=== PATIENT | female | born 1980 | race Caucasian/White ===

== ENCOUNTER → 2020-06-02 16:19 | Outpatient (BNVA) | payer OTHER, SELFPAY | PROVIDERS: Family Provider Family Medicine; PCP Family Medicine; Visit Provider Family Medicine | DX: Z11.59 Encounter for screening for other viral diseases (principal) | CPT/HCPCS: 87635 ==

== ENCOUNTER → 2021-04-20 11:00 | Outpatient (BNVA) | payer OTHER, SELFPAY | PROVIDERS: Family Provider Family Medicine; PCP Family Medicine; Visit Provider Nurse Practitioner Family | DX: Z20.822 Contact with and (suspected) exposure to COVID-19 (principal); J06.9 Acute upper respiratory infection, unspecified | CPT/HCPCS: 87635 ==

== ENCOUNTER → 2021-07-20 15:07 | Outpatient (BNVA) | payer OTHER, SELFPAY | PROVIDERS: Family Provider Family Medicine; PCP Family Medicine; Visit Provider Nurse Practitioner Family | DX: Z20.822 Contact with and (suspected) exposure to COVID-19 (principal); J06.9 Acute upper respiratory infection, unspecified | CPT/HCPCS: 87635 ==

== ENCOUNTER 2021-08-22 11:30 | Outpatient (CLI) | payer OTHER, SELFPAY ==
--- NOTE | 2021-08-22 11:37 | XR_ITS ---
WS: [id number] LEFT KNEE: 2 VIEW(S) TECHNIQUE: AP and lateral. HISTORY: L knee pain COMPARISON: None available. No fracture or dislocation. No joint space narrowing or osteophytes. No joint effusion. No soft tissue abnormality. XR/XR knee LT 1-2V [id number] IMPRESSION: Normal LEFT knee.
== END 2021-08-22 11:31 | disposition home or self-care (01) ==
PROVIDERS: PCP Family Medicine; Visit Provider Family Medicine
DX: M25.562 Pain in left knee (principal)
CPT/HCPCS: 73560; 80053; 80061; 84443; 85025

== ENCOUNTER → 2021-08-23 08:09 | Outpatient (BNVA) | payer OTHER, SELFPAY | PROVIDERS: PCP Family Medicine; Visit Provider Family Medicine | DX: R79.89 Other specified abnormal findings of blood chemistry (principal); M25.562 Pain in left knee | CPT/HCPCS: 84439; 84443 ==

== ENCOUNTER → 2021-09-05 12:56 | Outpatient (BNVA) | payer OTHER, SELFPAY | PROVIDERS: PCP Family Medicine; Visit Provider Nurse Practitioner Family | DX: Z20.822 Contact with and (suspected) exposure to COVID-19 (principal) | CPT/HCPCS: 87635 ==

== ENCOUNTER 2022-08-11 13:17 | Outpatient (CLI) | payer OTHER, SELFPAY ==
--- NOTE | 2022-08-11 14:35 | XR_ITS ---
WS: [id number] Right foot, 3 views, 08/11/2022 Clinical Data: right foot pain Comparison: None. Findings: No fractures or dislocations are seen. No bone destruction or erosion is noted. The joint spaces and soft tissues are normal. Is a plantar spur and an Achilles spur. XR/XR foot RT min 3V* [id number] Impression: Negative right foot.
== END 2022-08-11 13:18 | disposition home or self-care (01) ==
PROVIDERS: PCP Family Medicine; Visit Provider Emergency Medicine
DX: M79.671 Pain in right foot (principal)
CPT/HCPCS: 73630

== ENCOUNTER → 2022-08-28 10:23 | Outpatient (BNVA) | payer OTHER, SELFPAY | PROVIDERS: PCP Family Medicine; Referring Provider Family Medicine; Visit Provider Podiatrist Foot & Ankle Surgery | DX: S86.011A Strain of right Achilles tendon, initial encounter (principal); M65.28 Calcific tendinitis, other site; M67.873 Other specified disorders of tendon, right ankle and foot; M92.61 Juvenile osteochondrosis of tarsus, right ankle; X58.XXXA Exposure to other specified factors, initial encounter | CPT/HCPCS: 73630 ==

== ENCOUNTER 2022-09-18 06:00 | Outpatient (RCR) | payer SELFPAY | END 2022-10-10 23:59 | disposition home or self-care (01) | LOC: MPT 06:00 | PROVIDERS: PCP Family Medicine; Visit Provider Podiatrist Foot & Ankle Surgery | DX: M76.61 Achilles tendinitis, right leg (principal); M79.671 Pain in right foot | CPT/HCPCS: 97033; 97110; 97112; 97140; 97161; G0283 ==

== ENCOUNTER 2022-10-11 06:00 | Outpatient (RCR) | payer OTHER, SELFPAY | END 2022-11-10 23:59 | disposition home or self-care (01) | LOC: MPT 06:00 | PROVIDERS: PCP Family Medicine; Visit Provider Podiatrist Foot & Ankle Surgery | DX: M76.61 Achilles tendinitis, right leg (principal) | CPT/HCPCS: 97110; 97140; G0283 ==

== ENCOUNTER → 2023-06-07 09:34 | Outpatient (BNVA) | payer OTHER, SELFPAY | PROVIDERS: PCP Family Medicine; Visit Provider Family Medicine | DX: Z34.90 Encounter for supervision of normal pregnancy, unspecified, unspecified trimester (principal); Z3A.00 Weeks of gestation of pregnancy not specified; R30.0 Dysuria | CPT/HCPCS: 80307; 81000; 81025; 84439; 84443; 84481; 84702; 85025; 86592; 86762; 86803; 86850; 86900; 87086; 87340; 87491; 87591; 87624; 87806 ==

== ENCOUNTER 2023-06-19 06:07 | Outpatient (CLI) | payer OTHER, SELFPAY ==
--- NOTE | 2023-06-19 06:30 | US_ITS ---
WS: [id number] LIMITED OBSTETRICAL ULTRASOUND HISTORY: Dating/Anatomy US - Unclear LMP - next 1-2 weeks if possible COMPARISON: None available. Presentation: Cephalic. Cervix: Closed and normal length. Placenta: Posterior, no previa or abruption. Grade: 0 HEART: FHR of 150 BPM. measurements: BPD = 3.4 cm = 16w3d; HC = 12.9 cm = 16w4d; AC = 9.8 cm = 15w6d; FL = 2.1 cm = 16w2d; Normal amniotic fluid. EFW: 146 g; AGA by ultrasound: 16w2d NILAY by ultrasound: 12/02/2023 IMPRESSION: 1. Single intrauterine gestation of 16 weeks 2 days with an EDC of 12/02/2023. 2. Normal cardiac activity.
== END 2023-06-19 06:08 | disposition home or self-care (01) ==
LOC: RAD 06:07
PROVIDERS: PCP Family Medicine; Visit Provider Family Medicine
DX: Z34.80 Encounter for supervision of other normal pregnancy, unspecified trimester (principal)
CPT/HCPCS: 76805

== ENCOUNTER 2023-07-13 11:17 | Outpatient (CLI) | payer OTHER, SELFPAY ==
--- NOTE | 2023-07-13 11:30 | US_ITS ---
WS: [id number] ULTRASOUND OB FOCUSED HISTORY: Unable to auscultate FHTs in clinic COMPARISON: 06/19/2023 Single intrauterine gestation is present in transverse position. head is on the maternal RIGHT. No cardiac activity is identified. No movement during the examination. There is an appropriate amount of amniotic fluid surrounding the fetus. The cervix is closed measuring 5.0 cm. Placenta is an terior. IMPRESSION: Intrauterine demise. No cardiac activity is identified. Notified Chris Wylie MD at 07/13/2023 11:41 AM. Patient to return to Dr. Wylie's office at thi s time.
== END 2023-07-13 11:18 | disposition home or self-care (01) ==
LOC: RAD 11:17
PROVIDERS: PCP Family Medicine; Visit Provider Family Medicine
DX: O36.8390 Maternal care for abnormalities of the fetal heart rate or rhythm, unspecified trimester, not applicable or unspecified (principal); O36.4XX0 Maternal care for intrauterine death, not applicable or unspecified; Z3A.00 Weeks of gestation of pregnancy not specified
CPT/HCPCS: 76815

== ENCOUNTER 2023-07-19 11:44 | Inpatient (IN) | payer OTHER, SELFPAY ==
[2023-07-19] VITALS (29 sets, daily range): BP systolic 123–150; BP diastolic 60–83; PULSE 70–99; RESP 16; TEMP 36.2–36.9; BMI 37.5
[2023-07-19] MEDS: lactated ringers 1,000 ML 999 ML IV (12:24)
[2023-07-19] MEDS: miSOPROStol 200 mcg Tablet 400 MCG VAGINAL (12:48)
[2023-07-19 12:55] LABS: Basophils % 0.4 %; Eosinophils % 0.4 %; Hematocrit 35.5 % (36-47); Lymphocytes # 1.1 10^3/uL (0.8-4.8); Lymphocytes % 13.7 %; Mean Corpuscular HGB Conc 33.5 g/dL (30-55); Mean Corpuscular Hemoglobin 30.7 pg (27-33); Mean Corpuscular Volume 91.5 fl (85-98); Monocytes # 0.6 10^3/uL (0.2-0.9); Monocytes % 7.7 %; Neutrophils # 6.16 10^3/uL (1.8-7.7); Neutrophils % 77.4 %; Nucleated Red Blood Cells % 0 %; Platelet Count 296 10^3/cmm (157-399); Red Blood Count 3.88 10^6/uL (3.85-5.65); Red Cell Distribution Width 12.6 % (12.1-15.1); White Blood Count 7.95 10^3/uL (3.29-11.43)
--- NOTE | 2023-07-19 16:10 | P.HP_ITS ---
Providers/Chief Complaint 2 Admitting Physician: Chris Wylie MD Primary Care Provider: Hiro Escalona DO Chief Complaint: Demise History of Present Illness Dixie Persaud is a 43 year old with intrauterine demise at ~19 wks by 16 wk US with uncertain LMP. Preg c/b prior LTCS for intolerance of labor, hypothyroidism not taking meds consistently, obesity, AMA, nicotine use (Chewing tobacco). The patient had presented to clinic on 07/13/2023 and was found to have no heart tones. She received an urgent ultrasound and the ultrasound noted demise with measurements at approximately 19 weeks gestation. I gave the patient the option of expectant management, induction or D&E and initially she chose expectant management. Earlier this week she decided to discuss the options of D&E with Dr. Escalante. After discussion the patient decided to proceed with induction. The patient presents to labor and delivery for induction after having an intrauterine demise. She feels well overall. She denies any chest pains, shortness of breath, nausea, vomiting, diarrhea, constipation, dysuria, fever. Medications/Allergies Home Medications Medication Instructions Recorded Confirmed Last Taken Type ferrous gluconate 324 mg (38 mg 324 mg PO DAILY 04/20/21 07/18/23 Unknown History iron) tablet levothyroxine 75 mcg tablet 75 mcg PO DAILY #30 tabs 06/07/23 07/18/23 Unknown Rx vit 122-ferrous fumarate tab PO 06/07/23 07/18/23 Unknown History 27 mg iron-folic acid 800 mcg tablet ( Multi) Allergies Allergy/AdvReac Type Severity Reaction Status Date / Time No Known Allergies Allergy Verified 07/18/23 14:35 PFSH Acute 2 PFSH: Medical History (Updated 07/19/23 @ 16:18 by Chris Wylie MD) Acquired hypothyroidism Surgical History History of section Family History Mother Diabetes Hyperthyroidism Hypertension Father Hypothyroidism Social History Smoking and tobacco/nicotine status: current every day tobacco/nicotine user smokeless tobacco Smokeless tobacco user: chewing tobacco Smokeless tobacco details: 1 can per 2 weeks Alcohol intake: never Substance/Drug Use: never Current occupation: Works at [employer] Female Reproductive History: Spontaneous abortions: No Vitals/I&O/Wt Last Vital Signs Temp 97.2 F L 07/19/23 13:53 Pulse 92 07/19/23 15:46 BP 134/80 07/19/23 15:46 Weight last 48 hrs Weight 226 lb Physical Exam 2 Narrative: General: Alert and oriented x3 Eyes: Pupils equal round and reactive to light and accommodation Mouth: Mucous membranes moist, pharynx non-erythematous Cardiac: Regular rate and rhythm without murmurs Lungs: Clear to auscultation bilaterally without wheezes, crackles or rhonchi Abdomen: Soft, non-tender, fundus consistent with gestational age Extremities: Trace edema in the bilateral lower extremities Data 07/19/23 12:20 A&P Assessment and plan (1) demise before 20 weeks with retention of fetus: We will plan to proceed with induction using Cytotec since the ultrasound has confirmed intrauterine demise. I discussed the possible risks with her prior history of and that they are quite low since she is below 20 weeks gestation. We will start with 400 mcg and repeat with 200 mcg every 3 hours. The patient may have fentanyl if needed for pain. She may have a laboring epidural if she would like. All questions were answered. (2) Acquired hypothyroidism: We will plan to continue with levothyroxine. She had not been taking it consistently and I encouraged her to make sure and take this on a regular basis. (3) Nicotine abuse: The patient may have a nicotine patch if needed. She has been advised to quit using all forms of nicotine during and outside of as well. Attestations 2 Medical Necessity Statement*: The patient will be here for greater than 2 midnights due to intrapartum and management. Coding Level of Care Code Acute Code for Chg Fwd Diagnoses demise before 20 weeks with retention of fetus O02.1 Acquired hypothyroidism E03.9 Nicotine abuse Z72.0
[2023-07-19] MEDS: miSOPROStol 200 mcg Tablet VAGINAL (16:33)
[2023-07-19] MEDS: carboprost tromethamine 250 mcg/mL Amp IM (23:36)
[2023-07-19] MEDS: fentaNYL 50 mcg/mL INJ 2mL IVP (23:41)
[2023-07-19] MEDS: diphenoxylate/atropine Tablet 1 TAB PO (23:45)
--- NOTE | 2023-07-19 23:49 | PC.NURSE ---
[facility] has been notified of demise and they have released baby d/t not a candidate. Also released for [facility].
[2023-07-19] MEDS: oxytocin 30 UNIT/500 ML BAG 600 UNIT IV (23:54)
[2023-07-20] VITALS (17 sets, daily range): BP systolic 117–145; BP diastolic 60–90; PULSE 67–91; RESP 16–18; TEMP 36.1–36.6
--- NOTE | 2023-07-20 00:04 | PM.DELIVERY ---
Delivery Note: Date of delivery: July 20, 2023 Pre-delivery diagnoses: 1. Induction of labor due to IUFD 2. Hypothyroidism 3. AMA 4. Nicotine use Post-delivery diagnoses: 1. Induced vaginal delivery of IUFD 2. Manual removal of retained placenta. 3. Hypothyroidism 4. AMA 5. Nicotine use Procedure: 1. Induced vaginal delivery of IUFD 2. Manual removal of retained placenta. Delivering Physician: Chris Wylie MD Estimated blood loss (mL): 100 Findings: 1. at ~19 weeks gestation 2. Retained Placenta s/p manual removal Pre-Delivery Course: Dixie Persaud is a 43 year old with intrauterine demise at ~19 wks by 16 wk US with uncertain LMP. Preg c/b prior LTCS for intolerance of labor, hypothyroidism not taking meds consistently, obesity, AMA, nicotine use (Chewing tobacco). The patient had presented to clinic on 07/13/2023 and was found to have no heart tones. She received an urgent ultrasound and the ultrasound noted demise with measurements at approximately 19 weeks gestation. I gave the patient the option of expectant management, induction or D&E and initially she chose expectant management. Earlier this week she decided to discuss the options of D&E with Dr. Escalante. After discussion the patient decided to proceed with induction. The patient presented to labor and delivery for induction at approximately 11 AM on 07/19/2023 after having an intrauterine demise. She had no fever, significant pain, contractions, leakage of fluid or other symptoms. The patient was started on Cytotec 400 mcg PV. She was given a follow-up dose of 200 mcg 3 hours later. She was given lower doses due to her history of section. The patient began having cramping and SROM took place at 2230 on 07/19/2023. Delivery: The infant delivered in the breech position at 223 on 07/19/2023. The infant was at the time of delivery. There were signs that this had happened at least 1 to 2 weeks ago. There was a dark brown-colored amniotic fluid. The cord was clamped by myself and cut by the 's father. The was wrapped in a cloth and placed on the mother's chest. Uterine massage was carried out by myself and traction was placed on the umbilical cord. At 2254 the cord avulsed. The cord was noted to be very weak and was breaking down. After approximately 45 minutes, the placenta had not delivered, so Hemabate was given IM and I consulted with Dr. Escalante. He kindly came in and manually removed the placenta using forceps at 2354 on 07/19/2023. The placenta was noted to be fully removed based on examination, however it had broken down enough that this could not be determined with certainty. The patient has had very little bleeding. Her EBL was 100 mL. She will be given IV Pitocin to help contract the uterus. Currently the mother is doing well. Weight of the was 165g. History History History 4 Term 2 0 Miscarriages/Ectopic 2 Living Children 2 Past Pregnancies Del. Date GA/Weeks Outcome Route Wt Inf Gender Labor Lgth Comp. Anesthesia Location 01/10/02 40 live - full term Vaginal 7 lb 4.5 oz Male 38 [address] - Dr Gold 02/18/09 40 live - full term 6 lb 4 oz Male SROM at home - 4 hrs in with problems regional [facility] [place] [facility] [place] 11/15/14 18 spontaneous Vaginal Male 07/19/23 19 spontaneous Vaginal 5.82 oz Male 11 hr Other [facility] [place] Delivery Date: 01/10/02 Last Updated by: Chris Wylie MD No epidural, induced, had to reverse stadol Delivery Date: 02/18/09 Last Updated by: Chris Wylie MD Emergency C/S due to intolerance of labor - Cord wrapped around baby's neck, pLTCS Delivery Date: 07/19/23 Last Updated by: Chris Wylie MD Retained placenta - removed with forceps, IUFD at 19 weeks gestation. A&P Assessment and plan (1) Spontaneous vaginal delivery: (2) Retained placenta: Coding Level of Care Code Acute Code for Chg Fwd Diagnoses Spontaneous vaginal delivery O80 Retained placenta O73.0
[2023-07-20] MEDS: methylergonovine 0.2 mg/mL INJ 1 mL IM (00:38)
[2023-07-20] MEDS: ibuprofen 800 mg tablet PO (09:02)
[2023-07-20] MEDS: prenatal vitamin Capsule 1 CAP PO (09:02)
[2023-07-20] MEDS: levothyroxine 25 mcg Tablet 75 MCG PO (09:03)
[2023-07-20 13:19] LABS: Hematocrit 35.7 % (36-47); Mean Corpuscular HGB Conc 33.9 g/dL (30-55); Mean Corpuscular Hemoglobin 30.8 pg (27-33); Mean Corpuscular Volume 90.8 fl (85-98); Mean Platelet Volume 11.1 fL (7.4-10.4); Platelet Count 288 10^3/cmm (157-399); Red Blood Count 3.93 10^6/uL (3.85-5.65); Red Cell Distribution Width 12.5 % (12.1-15.1)
--- NOTE | 2023-07-20 14:32 | PM.DCS ---
Discharge Providers Date of Admission: 07/19/23 11:44 Date of Discharge: July 20, 2023 Attending Provider at Admission: Chris Wylie MD Attending Provider at Discharge: Chris Wylie MD Consults: Dr Henri Escalante Primary Care Provider: Hiro Escalona DO Diagnoses at Discharge Discharge Diagnosis (1) Spontaneous vaginal delivery: Status: Acute (2) Retained placenta: Status: Acute Other Information Additional DC diagnoses/information: 1. Induced vaginal delivery of IUFD 2. Manual removal of retained placenta. 3. Hypothyroidism 4. AMA 5. Nicotine use Reason for Visit Reason for Visit: Demise Brief History: Dixie Persaud is a 43 year old G4 now P2022 with intrauterine demise at ~19 wks by 16 wk US with uncertain LMP. Preg c/b prior LTCS for intolerance of labor, hypothyroidism not taking meds consistently, obesity, AMA, nicotine use (Chewing tobacco). The patient had presented to clinic on 07/13/2023 and was found to have no heart tones. She received an urgent ultrasound and the ultrasound noted demise with measurements at approximately 19 weeks gestation. I gave the patient the option of expectant management, induction or D&E and initially she chose expectant management. Earlier this week she decided to discuss the options of D&E with Dr. Escalante. After discussion the patient decided to proceed with induction. The patient presented to labor and delivery for induction at approximately 11 AM on 07/19/2023 after having an intrauterine demise. She had no fever, significant pain, contractions, leakage of fluid or other symptoms. Hospital Course Hospital Course The patient received Cytotec for induction of labor and after 2 doses she delivered at 10:33 PM on 07/19/2023. The infant was and weighed 5.8 ounces. The patient had retained placenta and they had to be manually extracted using ring forceps. Dr. Escalante assisted with this procedure. the patient has had very little bleeding. Her pain has been well-controlled. She is ambulating, voiding, passing gas and tolerating food by mouth. She has no signs of infection at this time. Per recommendations of Dr. Escalante we will give Methergine for the next 3 days to help decrease risk for bleeding with the patient's prior history of hemorrhage after delivery. The placenta appeared to be all present, however it did come out in pieces, so it is possible that she could have a small amount of retained placenta. Precautions were discussed with the patient in detail in terms of what to watch for in case of retained placenta or infection. All questions were answered. The patient will follow-up with me next week as well as 6 weeks . Physical Exam Narrative: General: Alert and oriented x3 Cardiac: Regular rate and rhythm without murmurs Lungs: Clear to auscultation bilaterally without wheezes, crackles or rhonchi Abdomen: Soft, mild tenderness over uterus. The uterus is firm and 2 cm below the umbilicus. Extremities: Trace edema in the bilateral lower extremities Discharge Data Studies Completed and Pending Pending at discharge Category Date Time Status Chromosomal Microarray, POC Routine Lab 07/20/23 00:38 Received Complete Crossmatch Routine Lab 07/19/23 12:20 Results Rhogam [Rho D Immune Globulin] Routine Lab 07/20/23 07:09 Results Type and Screen Routine Lab 07/19/23 12:20 Results Pathology: Surgical [PTH] Stat Pth 07/20/23 11:55 Received Laboratory Results WBC 11.20 10^3/uL (3.29-11.43) 07/20/23 12:24 RBC 3.93 10^6/uL (3.85-5.65) 07/20/23 12:24 Hgb 12.10 g/dL (11.27-16.99) 07/20/23 12:24 Hct 35.7 % (36-47) L 07/20/23 12:24 MCV 90.8 fl (85-98) 07/20/23 12:24 MCH 30.8 pg (27-33) 07/20/23 12:24 MCHC 33.9 g/dL (30-55) 07/20/23 12:24 RDW 12.5 % (12.1-15.1) 07/20/23 12:24 Plt Count 288 10^3/cmm (157-399) 07/20/23 12:24 MPV 11.1 fL (7.4-10.4) H 07/20/23 12:24 Neut % (Auto) 77.4 % 07/19/23 12:20 Lymph % (Auto) 13.7 % 07/19/23 12:20 Webster % (Auto) 7.7 % 07/19/23 12:20 Eos % (Auto) 0.4 % 07/19/23 12:20 Baso % (Auto) 0.4 % 07/19/23 12:20 Neut # (Auto) 6.16 10^3/uL (1.8-7.7) 07/19/23 12:20 Lymph # (Auto) 1.1 10^3/uL (0.8-4.8) 07/19/23 12:20 Webster # (Auto) 0.6 10^3/uL (0.2-0.9) 07/19/23 12:20 Eos # (Auto) 0.0 10^3/uL (0.0-0.8) 07/19/23 12:20 Baso # (Auto) 0.0 10^3/uL (0.0-0.1) 07/19/23 12:20 Nucleated RBC % (auto) 0 % 07/19/23 12:20 Nucleated RBCs # 0.0 /100WBC 07/19/23 12:20 Blood Type A Negative 07/19/23 12:20 Rho(D) Type Negative 07/19/23 12:20 Antibody Screen Negative 07/19/23 12:20 Vitals Last Vital Signs Temp 97.2 F L 07/20/23 11:24 Pulse 90 07/20/23 11:24 Resp 16 07/20/23 11:38 BP 117/64 07/20/23 11:24 O2 Del Method Room Air 07/19/23 23:05 Discharge Plan Discharge Patient Disposition: Home Condition: Good Prescriptions: New methylergonovine [Methergine] 0.2 mg tablet 0.2 mg PO TID 3 Days Qty: 9 0RF ibuprofen 800 mg Tablet 800 mg PO TID Qty: 30 0RF Continued Multi 27-800 mg-mcg tablet PO levothyroxine 75 mcg tablet 75 mcg PO DAILY Qty: 30 2RF Discontinued ferrous gluconate 324 mg (38 mg iron) tablet 324 mg PO DAILY Discharge Orders: Discharge Order (Routine); Ordered 07/20/23 Ordered By: Chris Wylie Referrals: Chris Wylie MD [Physician] - 7-10 days (1 week and 6 weeks ) Discharge Diet: Regular Discharge Activity: Limit activity as instructed Patient Instructions: Opioid Safety Activity Restrictions/Additional Instructions: If there is any concern for infection or increased bleeding, please return to OB or the ER for further evaluation right away. Nothing per vagina for 6 weeks. I would recommend showers instead of baths for the first 6 weeks. Discharge Attestations Time Spent in Discharge Care*: greater than 30 min Quality Metrics Clinical Quality Measures [ No reported AMI, CVA or VTE this stay] Coding Level of Care Code Acute Code for Chg Fwd Diagnoses Spontaneous vaginal delivery O80 Retained placenta O73.0
== END 2023-07-20 15:20 | disposition home or self-care (01) | DRG 806 ==
LOC: OPOB 11:46 → OBGYN 11:46
PROVIDERS: Admitting Provider Family Medicine; PCP Family Medicine; Visit Provider Family Medicine
DX: O02.1 Missed abortion (principal); O72.0 Third-stage hemorrhage; Z37.1 Single stillbirth; Z3A.19 19 weeks gestation of pregnancy; O99.284 Endocrine, nutritional and metabolic diseases complicating childbirth; E03.9 Hypothyroidism, unspecified; O34.211 Maternal care for low transverse scar from previous cesarean delivery; O99.334 Smoking (tobacco) complicating childbirth; F17.220 Nicotine dependence, chewing tobacco, uncomplicated; O09.522 Supervision of elderly multigravida, second trimester; O32.1XX0 Maternal care for breech presentation, not applicable or unspecified
CPT/HCPCS: 36415; 59409; 81229; 85025; 85027; 86850; 86900; 88305; 90384; 96372; 96374; 99211; J2210; J2590; J3010; J7120

== ENCOUNTER → 2023-08-22 12:05 | Outpatient (BNVA) | payer OTHER, SELFPAY | PROVIDERS: PCP Family Medicine; Visit Provider Family Medicine | DX: E03.9 Hypothyroidism, unspecified (principal) | CPT/HCPCS: 84439; 84443 ==

== ENCOUNTER → 2023-09-06 10:30 | Outpatient (BNVA) | payer OTHER, SELFPAY | PROVIDERS: PCP Family Medicine; Visit Provider Nurse Practitioner Women's Health | DX: Z12.4 Encounter for screening for malignant neoplasm of cervix (principal); Z30.9 Encounter for contraceptive management, unspecified | CPT/HCPCS: 81025; 87624 ==